=== PATIENT | male | born 2000 | race African-American/Black ===

== ENCOUNTER 2023-05-06 19:21 | Emergency (ER) | payer SELFPAY ==
[2023-05-06] MEDS ORDERED: Diphtheria,Pertussis(Acell),Tetanus Vaccine 0.5 ML Syringe IM ONE (21:19)
[2023-05-06] MEDS ORDERED: ceFAZolin 1 GM Vial IM ONE (21:19)
[2023-05-06] MEDS ORDERED: Lidocaine 1% 5 ML VIAL INJECT ONE (21:20)
[2023-05-06] MEDS ORDERED: Octyl 2-Cyanoacrylate 1 g/1 mL 1 APPLIC PEN TOP ONE (21:33)
[2023-05-06] MEDS ORDERED: Water For Injection, Sterile 20 ML ONE (22:02)
[2023-05-06] MEDS ORDERED: Water For Injection, Sterile 10 ML SDV INJECT STA (22:16)
== END 2023-05-06 22:24 | disposition home or self-care (01) ==
LOC: MW.ED 19:21
DX: S61.306A Unspecified open wound of right little finger with damage to nail, initial encounter (principal); Z23 Encounter for immunization; W23.0XXA Caught, crushed, jammed, or pinched between moving objects, initial encounter
CPT/HCPCS: 11760; 73130; 90471; 90715; 96372; 99283; A9270; J0690; J3490